=== PATIENT | male | born 1995 | race Caucasian/White ===

== ENCOUNTER 2017-02-08 08:00 | Day surgery (SDC) | payer BC ==
[~2017-02-08] VITALS: Ht 182.9 cm; Wt 81.6 kg
[~2017-02-08 08:00] MED LIST: CEFAZOLIN SOD 1 GM in D5W 50 ML IV ONE
[2017-02-08 08:59] VITALS: O2SAT 99
[2017-02-08] MEDS ORDERED: SEVOFLURANE 15 MIN GAS INH ONE (11:35)
[2017-02-08] MEDS ORDERED: LR 1,000 ML IV.SOLN IV ONE (11:35)
[2017-02-08] MEDS ORDERED: KETOROLAC TROMETHAMINE 30 MG VIAL IVP ONE (11:35)
[2017-02-08] MEDS ORDERED: MIDAZOLAM HCL 5 MG/5 ML VIAL IVP ONE (11:35)
[2017-02-08] MEDS ORDERED: DEXAMETHASONE SOD PHOSPHATE 4 MG/ML VIAL IVP ONE (11:35)
[2017-02-08] MEDS ORDERED: METOCLOPRAMIDE HCL 10 MG/2 ML VIAL IVP ONE (11:35)
[2017-02-08] MEDS ORDERED: fentaNYL CITRATE 250 MCG/5 ML AMP IV ONE (11:35)
[2017-02-08] MEDS ORDERED: PROPOFOL 200MG/ 20ML VIAL (DIPRIVAN) IV ONE (11:35)
[2017-02-08] MEDS ORDERED: LR 1,000 ML IV ONE (12:13)
[2017-02-08] MEDS ORDERED: NALOXONE HCL 0.4 MG/ML AMP (NARCAN) IVP PRN (12:15)
[2017-02-08] MEDS ORDERED: fentaNYL CITRATE/PF 100 MCG/2 ML AMP IVP PRN (12:15)
[2017-02-08] MEDS ORDERED: ePHEDrine sulfate 50 MG/ML VIAL IVP PRN (12:15)
[2017-02-08] MEDS ORDERED: NALBUPHINE HCL 10 MG/ML AMP IVP PRN (12:15)
[2017-02-08] MEDS ORDERED: ONDANSETRON HCL 4 MG/2 ML VIAL IVP PRN ×2 (12:15)
[2017-02-08] MEDS ORDERED: DIPHENHYDRAMINE INJ 50 MG/ML VIAL IVP PRN (12:15)
[2017-02-08] MEDS ORDERED: D5/0.45 NS 1,000 ML IV SCH (12:44)
[2017-02-08] MEDS ORDERED: HYDROcodone/ACETAMIN 5-325 MG TAB (NORCO/ VICODIN) PO PRN ×2 (12:45)
[2017-02-08] MEDS ORDERED: HYDROmorphone 1 MG INJ. 1 MG/ML AMPUL IVP PRN (12:45)
[2017-02-08] MEDS: fentaNYL CITRATE/PF 100 MCG/2 ML AMP ONE ×2 (12:53→13:07)
[2017-02-08] MEDS ORDERED: fentaNYL CITRATE/PF 100 MCG/2 ML AMP ONE (13:22)
[2017-02-08 14:08] VITALS: BP 113/66; PULSE 66; RESP 16
[2017-02-08] MEDS ORDERED: HYDROcodone/ACETAMIN 5-325 MG TAB (NORCO/ VICODIN) ONE (14:08)
== END 2017-02-08 14:20 | disposition home or self-care (01) ==
LOC: SMU 08:00 → SDS 08:00
PROVIDERS: ATTEND Colon & Rectal Surgery
DX: N62 Hypertrophy of breast (principal); Z87.891 Personal history of nicotine dependence
CPT/HCPCS: 19300; 88305; J0690; J1100; J1885; J2250; J2704; J2765; J3010 ×2; J7060; J7120

== ENCOUNTER 2019-06-04 12:43 | Emergency (ER) | payer BC, OTHER ==
[~2019-06-04] VITALS: Ht 180.3 cm; Wt 79.4 kg
[2019-06-04 12:45] VITALS: BP_SYST 138
[2019-06-04] MEDS ORDERED: SODIUM BICARBONATE 8.4% VIAL 50 MEQ/50 ML VIAL INJ ONE (13:15)
[2019-06-04] MEDS ORDERED: IBUPROFEN 800 MG TABLET PO ONE (13:15)
[2019-06-04] MEDS ORDERED: LIDOCAINE/EPI 2% 1:100000 20 ML VIAL INJ ONE (13:15)
[2019-06-04 14:27] VITALS: BP_SYST 130
== END 2019-06-04 14:27 | disposition home or self-care (01) ==
LOC: SED 12:43
DX: L02.415 Cutaneous abscess of right lower limb (principal); R03.0 Elevated blood-pressure reading, without diagnosis of hypertension
CPT/HCPCS: 99284